=== PATIENT | male | born 1945 | race Caucasian/White ===

== ENCOUNTER 2020-08-05 17:58 | Outpatient (REF) | payer MEDICARE, SELFPAY | END 2020-08-05 17:59 | disposition home or self-care (01) | LOC: HO.LNP 17:58 | PROVIDERS: Visit Provider Physician Assistant | DX: M54.5 Low back pain (principal) | CPT/HCPCS: 87086 ==

== ENCOUNTER 2021-11-09 09:04 | Outpatient (REF) | payer MEDICARE, SELFPAY ==
[2021-11-09 11:29] LABS: MANUAL DIFF FLAG NO
[2021-11-09 11:33] LABS: Hematocrit 41.1 % (42.0-52.0); Hemoglobin 13.9 g/dl (14.0-18.0); Red Blood Count 4.37 X10*6/uL (4.60-5.80); White Blood Count 7.8 X10*3/uL (4.8-10.8)
[2021-11-09 11:34] LABS: Basophils Percent Auto 0.3 % (0-2); Eosinophils Absolute Auto 0.4 X10*3/uL (0.0-0.4); Eosinophils Percent Auto 5.1 % (0-4); Imm Gran Abs Auto 0.02 X10*3/uL (0.00-0.03); Imm Gran Pct Auto 0.3 % (0.0-0.4); Lymphocytes Absolute Auto 3.5 X10*3/uL (1.2-4.9); Lymphocytes Percent Auto 44.8 % (20-40); Mean Corpuscular HGB Conc 33.8 g/dl (31.0-36.0); Mean Corpuscular Hemoglobin 31.8 pg (27.0-33.0); Mean Corpuscular Volume 94.1 fL (80.0-98.0); Mean Platelet Volume 10.3 fL (9.4-12.4); Monocytes Absolute Auto 0.4 X10*3/uL (0.1-1.2); Monocytes Percent Auto 5.1 % (2-11); Neutrophils Absolute Auto 3.5 x10*3/uL (2.0-8.3); Neutrophils Percent Auto 44.4 % (45-73); Platelet Count 194 X10*3/uL (160-400); Red Cell Distribution Width 12.7 % (11.0-16.0)
[2021-11-09 11:50] LABS: Alanine Aminotransferase 19 U/L (0-40); Albumin Level 4.1 g/dL (3.5-5.0); Alkaline Phosphatase 81 U/L (39-117); Anion Gap 11 (12-20); Aspartate Amino Transferase 24 U/L (5-37); Bilirubin Total 1.4 mg/dL (0.0-1.0); Blood Urea Nitrogen 23 mg/dL (9-16); Calcium 9.4 mg/dL (8.4-10.2); Carbon Dioxide 28 mmol/L (22-29); Chloride 105 mmol/L (96-108); Cholesterol 226 mg/dL; Estimated Glomerular Filt Rate 55; Glucose Fasting 93 mg/dL (60-99); HDL Cholesterol 51 mg/dL; LDL Cholesterol Calculated 159 mg/dl; Potassium 4.4 mmol/L (3.3-5.1); Sodium 140 mmol/L (135-145); Total Protein 7.5 g/dL (6.5-8.0); Triglycerides 82 mg/dL
[2021-11-09 12:13] LABS: Thyroid Stimulating Hormone 1.55 uIU/mL (0.32-4.0); Vitamin D 25-OH Total 23.4 ng/mL (>30)
[2021-11-09 12:30] LABS: Vitamin B12 271 pg/mL (200-900)
== END 2021-11-09 09:05 | disposition home or self-care (01) ==
LOC: HO.MANLDS 09:04
PROVIDERS: PCP Internal Medicine; Visit Provider Internal Medicine
DX: Z00.01 Encounter for general adult medical examination with abnormal findings (principal)
CPT/HCPCS: 36415; 80053; 80061; 82306; 82607; 84443; 85025

== ENCOUNTER 2022-11-22 08:38 | Outpatient (REF) | payer MEDICARE, SELFPAY ==
[2022-11-22 11:16] LABS: MANUAL DIFF FLAG NO
[2022-11-22 11:20] LABS: Basophils Percent Auto 0.3 % (0-2); Eosinophils Absolute Auto 0.4 X10*3/uL (0.0-0.4); Eosinophils Percent Auto 4.9 % (0-4); Hematocrit 42.6 % (42.0-52.0); Hemoglobin 14.4 g/dl (14.0-18.0); Imm Gran Abs Auto 0.02 X10*3/uL (0.00-0.03); Imm Gran Pct Auto 0.3 % (0.0-0.4); Lymphocytes Absolute Auto 3.3 X10*3/uL (1.2-4.9); Lymphocytes Percent Auto 42.9 % (20-40); Mean Corpuscular HGB Conc 33.8 g/dl (31.0-36.0); Mean Corpuscular Hemoglobin 31.8 pg (27.0-33.0); Mean Platelet Volume 10.6 fL (9.4-12.4); Monocytes Absolute Auto 0.5 X10*3/uL (0.1-1.2); Monocytes Percent Auto 6.7 % (2-11); Neutrophils Absolute Auto 3.4 x10*3/uL (2.0-8.3); Neutrophils Percent Auto 44.9 % (45-73); Platelet Count 201 X10*3/uL (160-400); Red Blood Count 4.53 X10*6/uL (4.60-5.80); Red Cell Distribution Width 12.6 % (11.0-16.0); White Blood Count 7.6 X10*3/uL (4.8-10.8)
[2022-11-22 11:58] LABS: Alanine Aminotransferase 12 U/L (0-40); Alkaline Phosphatase 87 U/L (39-117); Anion Gap 12 (12-20); Aspartate Amino Transferase 20 U/L (5-37); Bilirubin Total 1.1 mg/dL (0.0-1.0); Blood Urea Nitrogen 21 mg/dL (9-16); Calcium 9.4 mg/dL (8.4-10.2); Carbon Dioxide 30 mmol/L (22-29); Chloride 103 mmol/L (96-108); Cholesterol 225 mg/dL; Estimated Glomerular Filt Rate 54; Glucose Fasting 103 mg/dL (60-99); HDL Cholesterol 49 mg/dL; LDL Cholesterol Calculated 160 mg/dl; Potassium 4.7 mmol/L (3.3-5.1); Sodium 140 mmol/L (135-145); Total Protein 7.2 g/dL (6.5-8.0); Triglycerides 84 mg/dL
[2022-11-22 12:30] LABS: Thyroid Stimulating Hormone 2.06 uIU/mL (0.32-4.0); Vitamin B12 353 pg/mL (200-900); Vitamin D 25-OH Total 28.4 ng/mL (>30)
[2022-11-22 15:43] LABS: Prostate Specific Antigen < 0.10 ng/mL (<0.05-4.0)
== END 2022-11-22 08:39 | disposition home or self-care (01) ==
LOC: HO.MANLDS 08:38
PROVIDERS: Visit Provider Internal Medicine
DX: Z00.00 Encounter for general adult medical examination without abnormal findings (principal); Z12.5 Encounter for screening for malignant neoplasm of prostate; G93.32 Myalgic encephalomyelitis/chronic fatigue syndrome; E78.00 Pure hypercholesterolemia, unspecified
CPT/HCPCS: 36415; 80053; 80061; 82306; 82607; 84153; 84443; 85025

== ENCOUNTER 2023-11-29 08:50 | Outpatient (REF) | payer MEDICARE, SELFPAY ==
[2023-11-29 13:31] LABS: MANUAL DIFF FLAG NO
[2023-11-29 14:06] LABS: Basophils Percent Auto 0.3 % (0-2); Eosinophils Absolute Auto 0.4 X10*3/uL (0.0-0.4); Eosinophils Percent Auto 5.2 % (0-4); Hematocrit 42.3 % (42.0-52.0); Hemoglobin 14.4 g/dl (14.0-18.0); Imm Gran Abs Auto 0.02 X10*3/uL (0.00-0.03); Imm Gran Pct Auto 0.3 % (0.0-0.4); Lymphocytes Absolute Auto 3.1 X10*3/uL (1.2-4.9); Lymphocytes Percent Auto 41.4 % (20-40); Mean Corpuscular Hemoglobin 32.1 pg (27.0-33.0); Mean Corpuscular Volume 94.4 fL (80.0-98.0); Mean Platelet Volume 9.8 fL (9.4-12.4); Monocytes Absolute Auto 0.5 X10*3/uL (0.1-1.2); Monocytes Percent Auto 6.7 % (2-11); Neutrophils Absolute Auto 3.5 x10*3/uL (2.0-8.3); Neutrophils Percent Auto 46.1 % (45-73); Platelet Count 234 X10*3/uL (160-400); Red Blood Count 4.48 X10*6/uL (4.60-5.80); Red Cell Distribution Width 12.6 % (11.0-16.0); White Blood Count 7.5 X10*3/uL (4.8-10.8)
[2023-11-29 14:12] LABS: Alanine Aminotransferase 17 U/L (0-40); Alkaline Phosphatase 97 U/L (39-117); Anion Gap 12 (12-20); Aspartate Amino Transferase 30 U/L (5-37); Bilirubin Total 0.6 mg/dL (0.0-1.0); Blood Urea Nitrogen 27 mg/dL (9-16); Calcium 9.9 mg/dL (8.4-10.2); Carbon Dioxide 30 mmol/L (22-29); Chloride 105 mmol/L (96-108); Estimated Glomerular Filt Rate 58; Glucose Random 102 mg/dL (60-115); Potassium 4.9 mmol/L (3.3-5.1); Sodium 142 mmol/L (135-145); Total Protein 7.7 g/dL (6.5-8.0); Uric Acid 7.8 mg/dL (3.4-7.0)
[2023-11-29 14:27] LABS: Vitamin D 25-OH Total 38.1 ng/mL (>30)
[2023-11-29 14:32] LABS: Vitamin B12 340 pg/mL (200-900)
== END 2023-11-29 08:51 | disposition home or self-care (01) ==
LOC: HO.MANLDS 08:50
PROVIDERS: Visit Provider Internal Medicine
DX: Z00.00 Encounter for general adult medical examination without abnormal findings (principal); M10.9 Gout, unspecified
CPT/HCPCS: 36415; 80053; 82306; 82607; 84550; 85025

== ENCOUNTER 2025-03-20 08:59 | Outpatient (REF) | payer MEDICARE, SELFPAY ==
--- OUTSIDE RECORDS SUMMARY | 2025-03-20 09:12 | XMS_ITS | Data Portability ---
Author Organization [facility], Telehealth Patient Home Address [address] [place] [address] Assessment Encounter Date Assessment Date Assessment LastModified by Organization Details LastModified Time 03/19/2025 03/19/2025 Patient presente d to office today for their Medicare Annual Wellness Visit. Education was provided on healthy nutrition, including a diet rich in fruits and vegetables, minimizing simple carbohydrates, salt, and saturated fats. Encouraged regular cardiovascular exercise such as walking at least 30 minutes daily, 5 times per week. Emphasized preventive health measures and educated pt on fall prevention and community-based lifestyle interventions to help reduce health risks and promote healthy living. Not available 03/13/2025 15:45:51 Plan of Treatment Reminders Order Date Submit Date Provider Last Modified By Organization Details Last Modified Time Details Appointments MEDICARE ANNUAL WELLNESS 2025 09:30A M DR MOE Not available Not available Not available Lab uric acid, serum or plasma 2024 025 [facility], [address] [place] [address], [id number], 03/19/2025 10:39:25 PSA, serum or plasma 2024 025 [facility], [address] [place] [address], [id number], 03/19/2025 10:39:25 CBC 2024 025 [facility], [address] [place] [address], [id number], 03/19/2025 10:39:25 lipid panel, blood 2024 025 [facility], [address] [place] [address], [id number], 03/19/2025 10:39:25 CMP, serum or plasma 2024 025 [facility], [address] [place] [address], [id number], 03/19/2025 10:39:25 uric acid, serum or plasma 2023 024 [facility], [address] [place] [address], [id number], 12/02/2023 14:27:37 CMP, serum or plasma 2023 024 [facility], [address] [place] [address], [id number], 2023 11:14:55 CBC w/ auto diff 2023 024 [facility], [address] [place] [address], [id number], 11/28/2023 13:04:52 vitamin D, 25-hydrox y, total, serum 2023 024 [facility], [address] [place] [address], [id number], 11/28/2023 13:04:52 vitamin B12, serum 2023 024 [facility], [address] [place] [address], [id number], 11/28/2023 13:04:52 lyme disease igg+igm, serum, reflex western blot 2022 023 [facility], [address] [place] [address], [id number], 12/15/2022 11:10:37 CMP, serum or plasma 2022 023 [facility], [address] [place] [address], [id number], 11/23/2022 11:13:38 CBC w/ auto diff 2022 023 [facility], [address] [place] [address], [id number], 11/09/2022 12:10:37 PSA, serum or plasma 2022 023 [facility], [address] [place] [address], [id number], 11/09/2022 12:10:37 vitamin D, 25-hydrox y, total, serum 2022 023 [facility], [address] [place] [address], [id number], 11/09/2022 12:10:37 lipid panel, blood 2022 023 [facility], [address] [place] [address], [id number], 11/09/2022 12:10:37 vitamin B12, serum 2022 023 [facility], [address] [place] [address], [id number], 11/09/2022 12:10:37 TSH, serum or plasma 2022 023 [facility], [address] [place] [address], [id number], 11/09/2022 12:10:37 Referral None recorded. Procedures None recorded. Surgeries None recorded. Imaging CT, heart, w/o contrast, w/ coronary calcium score 2024 025 [email or web address] [facility], [address] [place], [address], 03/19/2025 11:11:31 Medication Orders [facility]il 20 mg tablet 2024 0[facility] [address] [place], [address], 03/19/2025 10:40:39 colchicin e 0.6 mg tablet 2023 024 [email or web address] [id number], [address] [place], [address], 03/19/2025 10:23:30 doxycycli ne hyclate 100 mg tablet 2022 023 [email or web address] [id number], [address] [place], [address], 01/17/2023 11:49:19 Patient TargetsNo targets recorded. Patient Instructions Encounter Date Encounter Id Patient Instructions Last Modified By Organization Details Last Modified Time 03/19/2025 [id number] gout: care instructions [email or web address] Not available 03/19/2025 10:36:12 Discussed and explained advance directives such as standard forms to the . Face to face discussion lasted for a duration of ___ minutes. Not available 03/13/2025 15:45:51 Reason for Referral None Reported. Results Created Date Observation Date Name Description Value Unit Range Abnormal Flag Note LastModifiedBy Organization Detail LastModifiedTime Result Notes None recorded. Problems Name Problem SNOMED Code Status Onset Date Resolution Date Notes Provider Name and Address Organization Details Recorded Time Left anterior fascicular block 12856808 Active 2018 Deborah rooney [facility] 9 16:38:16 Carcinoma of prostate 542377852 Active 2018 Deborah rooney [facility] 9 16:38:25 Hypertensi ve disorder 24154913 Active 2022 JEANNETTE VANEGAS [address] [place] [address], [address], [facility] 3 11:47:30 Gout 13587321 Active 2023 Clint Moe DO [address] [place], [address], [facility] 4 12:40:25 Problem Notes None recorded. Procedures Surgical History Date Name Laterality Status Provider Name and Address Organization Details Recorded Time 0 Suture/Stap le removal completed JEANNETTE VANEGAS [address] [place], [address], [facility] 04/30/2020 11:23:23 Imaging Results None recorded. Procedure Notes None recorded. Medical Equipment None Reported. Allergies No known drug allergies Medications Name Sig Start Date Stop Date Status Note LastModified by Organization Details LastModified Time cephalexin 500 mg capsule TAKE 1 CAPSULE BY MOUTH 4 TIMES A DAY FOR 5 DAYS 08/05 completed Not Available Not Available Not Available diclofenac sodium 75 mg tablet,amado yed release TAKE 1 TABLET BY MOUTH TWICE A DAY WITH MEALS 11/03 completed Not Available Not Available Not Available colchicine 0.6 mg tablet TAKE 2 TABS AT ONCE AND THEN 1 TAB 3 HOURS LATER 03/19 completed Not Available Not Available Not Available doxycycline hyclate 100 mg tablet TAKE 1 TABLET TWICE A DAY BY MOUTH FOR 1 DAY. 01/17 completed Not Available Not Available Not Available tadalafil 20 mg tablet Take 1 tablet as needed by oral route as needed for 90 days. 2024 active Not Available Not Available Not Avai lable Boostrix Tdap 2.5 Lf unit-8 mcg-5 Lf/0.5 mL intramuscul ar syringe TO BE ADMINISTE RED BY PHARMACIS T FOR IMMUNIZAT ION 08/05 completed Not Available Not Available Not Available Tart Almeida 03/19 completed Not Available Not Available Not Available Baby Vitamin D3 10 mcg/drop (400 unit/drop) oral drops Take 30 microgram s every day by oral route. 03/19 completed Not Available Not Available Not Available Flowflex COVID-19 Antigen Home Test kit USE DIRECTED 11/09 completed Not Available Not Available Not Available Vitals Date Recorded Body height Body mass index (BMI) Body weight Heart rate Oxygen saturation Oxygen saturation in Arterial blood by Pulse oximetry Systolic And Diastolic Provider Name and Address Organization Details Last Updated DateTime 3 176.53 cm 26.6 kg/m2 07824.4 g 91 /min 98 % 98 % 146/88 mm[Hg] Clint Moe DO [address] [place], [address] 3 11:56:31 Date Recorded Body height Body mass index (BMI) Body weight Heart rate Oxygen saturation Oxygen saturation in Arterial blood by Pulse oximetry Systolic And Diastolic Provider Name and Address Organization Details Last Updated DateTime 4 176.53 cm 27.8 kg/m2 76498.8 6 g 88 /min 97 % 97 % 146/88 mm[Hg] Jo-Ann Main [facility] 4 12:05:15 Date Recorded Body height Body mass index (BMI) Body weight Heart rate Oxygen saturation Oxygen saturation in Arterial blood by Pulse oximetry Systolic And Diastolic Provider Name and Address Organization Details Last Updated DateTime 3 176.53 cm 26.9 kg/m2 58124.5 9 g 81 /min 97 % 97 % 150/78 mm[Hg] Emmie Avilez [facility] 3 10:49:08 Date Recorded Body height Heart rate Oxygen saturation Oxygen saturation in Arterial blood by Pulse oximetry Body mass index (BMI) Body weight Systolic And Diastolic Provider Name and Address Organization Details Last Updated DateTime 3 176.53 cm 63 /min 100 % 100 % 26.6 kg/m2 74027.0 4 g 160/100 mm[Hg] JEANNETTE VANEGAS [address] [place], [address] 3 11:50:45 Date Recorded Body height Body mass index (BMI) Body weight Heart rate Oxygen saturation Oxygen saturation in Arterial blood by Pulse oximetry Systolic And Diastolic Provider Name and Address Organization Details Last Updated DateTime 5 175.26 cm 28.4 kg/m2 60437.7 4 g 85 /min 98 % 98 % 128/68 mm[Hg] Emmie Avilez [facility] 5 10:04:05 Social History Question Answer Notes LastModified by Organizat ion Details LastModified Time Tobacco Smoking Status Never Smoker Not Available [employer] 07/08/2020 03:36:23 What Was The Date Of Your Most Recent Tobacco Screening? 03/19/2025 [email or web address] Information not available 03/19/2025 Sex: Unknown Functional Status None recorded. Mental Status None recorded. Family History Nothing Reported. Medical History No medical history recorded. Immunizations Vaccine Type Date Status Note Provider Nam e and Address Organization Details Recorded Time COVID-19, mRNA, LNP-S, PF, 30 mcg/0.3 mL dose 12/06/2020 completed Deborah rooney [facility] 11/03/2021 14:46:48 COVID-19, mRNA, LNP-S, PF, 30 mcg/0.3 mL dose 06/23/2021 batsheva rooney [facility] 11/03/2021 14:46:54 COVID-19, mRNA, LNP-S, PF, 30 mcg/0.3 mL dose 11/15/2020 batsheva rooney [facility] 11/03/2021 14:47:19 Past Encounters Encounter ID Performer Location Encounter Start Date Encounter Closed Date Diagnosis/Indication Diagnosis SNOMED-CT Code Diagnosis ICD10 Code Diagnosis Note [id number] Clint Moe [facility] [address] [facility],[place] [address] 09/12/2018 10:54:37 09/12/2018 16:47:37 Adult health examination 155764254 Z00.00 has done exxception ally well is going to embark on a new vigorous exercise program will need an ETT prior Active or passive immunization 233335556 Z23 recc shingles, tdap pneumo up to date Ischemic h eart disease screening 341189353 Z13.6 patient embarking on new vigorous exercise program [id number] Clint Moe [facility] [address] [facility],[place] [address] 09/18/2019 10:48:22 09/18/2019 11:17:06 Adult health examination 655835862 Z00.00 has done exceptiona lly well is going to embark on a new vigorous exercise program will need an ETT prior Active or passive immunization 201206956 Z23 recc shingles, tdap pneumo up to date Hepatitis C screening 41 2284786 Z11.59 Increased blood pressure 73103766 R03.0 will be checking at home think this may be an outlayer and not signif reading Primary er ectile dysfunction 978970569 N52.9 [id number] Clint Moe [facility] Medicine [address] [facility] [address] 04/30/2020 11:06:00 04/30/2020 12:34:00 Removal of suture 79344226 Z48.02 tolerated well patient looks good, wounds are well healing [id number] Clint Moe [facility] Medicine [address] [facility],[place] [address] 08/05/2020 15:37:50 08/05/2020 16:22:35 Low back pain 911279938 M54.5 no low back pain, more hip pain Pain of ri ght hip joint 0106664745 30290 M25.551 will fu after XR [id number] Clint Moe [facility] Medicine [address] [facility],[place] [address] 10/27/2020 14:50:56 10/27/2020 15:37:41 Active or passive immunization 126333922 Z23 recc shingles, tdap pneumo up to date Adult heal th examination 348589172 Z00.00 has done exceptiona lly well is going to embark on a new vigorous exercise program will need an ETT prior [id number] Clint Moe [facility] Medicine [address] [facility],[place] [address] 11/03/2021 11:19:34 11/04/2021 08:21:12 Active or passive immunization 552821630 Z23 recc shingles, tdap pneumo up to date Adult heal th examination 950398680 Z00.01 doing very good and is not having any major issues Primary er ectile dysfunction 781057418 N52.9 [id number] Clint Moe [facility] Medicine [address] [facility] [address] 11/09/2022 11:50:58 11/09/2022 16:29:23 Active or passive immunization 767067634 Z23 recc shingles, tdap pneumo up to date Adult heal th examination 301818874 Z00.00 doing very good and is not having any major issues Advance care planning 71 9398843 Z71.89 utd [id number] Clint Moe [facility] Medicine [address] [facility],[place] [address] 12/15/2022 10:40:46 12/15/2022 14:04:14 Infection of tick bite 978529823 W57.XXXA will set up with doxycyclin e Carcinoma of prostate 25 5646636 C61 stable no changesmon itoring symptoms [id number] Clint Moe [facility] Medicine [address] [facility],[place] [employer] [place] [address] 01/17/2023 11:43:37 01/17/2023 12:33:40 Hypertensive disorder 64701527 I10 lower with rechecksti ll declines any medical interventi on with his BP at this time Carcinoma of prostate 25 0606516 C61 stable no changesmon itoring symptoms [id number] Clint Moe [facility] Medicine [address] [facility] [address] 11/28/2023 11:53:44 11/28/2023 13:43:47 Hypertensive disorder 24836203 I10 stable Adult heal th examination 409644272 Z00.00 doing very good and is not having any major issues Gout 77171374 M10.9 told to use colchicine instead of tart almeida [id number] Clint Moe [facility] Medicine [address] [facility] [address] 03/19/2025 09:53:46 03/19/2025 11:11:31 Screening for cardiovascular system disease 368200327 Z13.6 doing very good and is not having any major issues Screening for malignant neoplasm of colon 434195793 Z12.11 Hypertensive disorder 38 148726 I10 stable Gout 50914045 M10.9 told to use colchicine instead of tart almeida Carcinoma of prostate 25 0659395 C61 Well adult 973134665 Z00 .00 doing very good and is not having any major issues Primary er ectile dysfunction 001240456 N52.9 Health Concerns Section Related Observation LastModified by Organization Kathryn ls LastModified Time None Recorded Concern Status LastModified by Organization Details LastModified Time None Recorded Advance Directives Directive None Recorded Payers Insurance Date Sequence Insurance Name Policy Number Policy Busch Covered Member ID Busch Member ID Guarantor Name 03/19/2025 1 [facility]: MEDICARE PPO BLUE (MEDICARE REPLACEMENT PPO) [id number] Fidencio Obara [id number] Fidencio Obara Notes Date Note Type Note Provider Name and Address Organization Details Recorded Time 3 text/html Annual WellnessReported bypatient.Diet and Nutrition:healthy diet Fracture Risk:no history of fractures; no recent explained fracture; no sudden unexplained fractures; no previous musculoskeletal injuries Physical Activity:exercises on a regular basis; recent increase in physical activity; good physical condition Additional Lifestyle Factors:no tobacco use; no alcohol intake; stopped drinking alcohol Depression Risk:never feels sad, empty, or tearful; no loss of interest in activities; no significant changes in weight; no sleep disturbances or insomnia; no agitation; no loss of energy; no feelings of worthlessness or guilt; no thoughts of suicide; no history of depression; no history of mood disorders Hearing:no loss of hearing Vision:no vision problemsNotes:doing well offers no new complaintswondering about supplements for his age talked about matt Moe, DO [address] [facility], [place], [address], [facility] 11/09/2022 12:09:41 3 text/html c/o tick bite the patient reports finding a tick on him in the showerit was fully engorgedthe patient has been hiking and walking outsidedidn't notice it previouslywas on a hike yesterday in the [place] there at that time was on the left side upper torso under the axilla regionarea is red and swollenno bull's eye rash agreed to start doxy one doserecck lyme disease panel in 4 weeks or so and check on his symptoms if anything has changed no issues today with urination or dysuriastable; will monitor JEANNETTE VANEGAS [address] [place], [address], [facility] 12/15/2022 11:12:03 3 text/html BP f/u doing great; the patient reports that HTN: elevated in the office today; more so than usualrecheck is 142/80 R arm after sitting for 15 minutes carcinoma of prostate: stable the patient reports that he used to take his BP at homethe patient declines BP medication or intervention if BP continues to be elevateddid discuss dizziness with ptmild in the morning, could be BP, could be vertigo related headaches/seasonal related still hiking and boatingfeels really goodno other symptoms or concerns will monitor patientwill have him f/u JEANNETTE VANEGAS [address] [place], [address], [facility] 01/17/2023 12:32:07 4 text/html note had what appeared to be 2 gout attacks to left great toe Clint Moe DO [address] [place], [address], [facility] 11/28/2023 12:45:33 5 text/html Medicare Annual Wellness VisitReported bypatient.Diet and Nutrition:healthy diet Fracture Risk:no history of fractures; no recent explained fracture; no sudden unexplained fractures; no previous musculoskeletal injuries Physical Activity:exercises on a regular basis; recent increase in physical activity; good physical condition Depression Risk:never feels sad, empty, or tearful; no loss of interest in activities; no significant changes in weight; no sleep disturbances or insomnia; no agitation; no loss of energy; no feelings of worthlessness or guilt; no thoughts of suicide; no history of depression; no history of mood disorders Orientation:no disorientation to time; no disorientation to date; no disorientation to place Concentration and Memory:no decreased concentrating ability; no memory lapses or loss; does not forget words Speech/Motor difficulties:no speech difficulties; no difficulty expressing formulated concepts; no difficulty with fine manipulative tasks; no difficulty writing/copying; no slowed reaction time; does not knock things over when trying to pick them up Hearing:no loss of hearing Vision:no vision problems Activities of Daily Living:able to bathe with limited or no assistance; able to contol urination and bowels; able to dress with limited or no assistance; able to feed self with limited or no assistance; able to get out of chair or bed with limited or no assistance; able to groom with limited or no assistance; able to toilet with limited or no assistance Instrumental Activities of Daily Living:able to do house work with limited or no assistance; able to grocery shop with limited or no assistance; able to manage medications with limited or no assistance; able to manage money with limited or no assistance; able to prepare meals with limited or no assistance; able to use the phone with limited or no assistance Falls Risk Assessment:no frequent falls while walking; no fall in the past year; no fall since last visit; no dizziness/vertigo Home Safety:no unsafe ernesto hazzards; no unsafe stairs; no unsafe gas appliances; working smoke/CO detectors; wears protective head gear for biking/high velocity; use of seatbelts; practicing 'safer sex'; no vision or hearing loss while driving; no fire arms; has hand bars in the bathroom/shower; good lighting in the home Patient is a __79 year old male with a history of hypertension. Patient had been stable on medication until recently. Patient returns today for further evaluation. Patient denies lightheadedness or dizziness. Clint Moe, DO [address] [facility], [place], [address], [facility] 03/19/2025 10:40:44
--- OUTSIDE RECORDS SUMMARY | 2025-03-20 09:12 | XMS_ITS | Patient Health Record ---
Author Organization [facility] Address [address] [place] [address] Care Team Providers Care Booth Manager Name Role Phone Pascual Doe Unavailable [phone] Reason For Referral No Information Plan Of Treatment No Information
[2025-03-20 13:46] LABS: MANUAL DIFF FLAG NO
[2025-03-20 13:56] LABS: Hematocrit 40.7 % (42.0-52.0); Hemoglobin 14.1 g/dl (14.0-18.0); Imm Gran Abs Auto 0.02 X10*3/uL (0.00-0.03); Imm Gran Pct Auto 0.3 % (0.0-0.4); Lymphocytes Absolute Auto 3.0 X10*3/uL (1.2-4.9); Mean Corpuscular HGB Conc 34.6 g/dl (31.0-36.0); Mean Corpuscular Hemoglobin 32.3 pg (27.0-33.0); Mean Corpuscular Volume 93.1 fL (80.0-98.0); NRBC Abs Auto 0.000 X10*3/uL (0.0-0.012); NRBC Pct Auto 0.0 /100WBC (0.0-0.2); Platelet Count 176 X10*3/uL (160-400); Red Blood Count 4.37 X10*6/uL (4.60-5.80); White Blood Count 8.0 X10*3/uL (4.8-10.8)
[2025-03-20 14:28] LABS: Alanine Aminotransferase 14 U/L (0-40); Albumin Level 4.1 g/dL (3.5-5.0); Alkaline Phosphatase 87 U/L (39-117); Anion Gap 9 (12-20); Aspartate Amino Transferase 25 U/L (5-37); Blood Urea Nitrogen 18 mg/dL (9-16); Calcium 9.1 mg/dL (8.4-10.2); Carbon Dioxide 26 mmol/L (22-29); Chloride 109 mmol/L (96-108); Cholesterol 197 mg/dL (<200); Estimated Glomerular Filt Rate > 60; HDL Cholesterol 43 mg/dL (>40); Potassium 4.1 mmol/L (3.3-5.1); Sodium 140 mmol/L (135-145); Total Protein 7.0 g/dL (6.5-8.0); Triglycerides 98 mg/dL (<150); Uric Acid 7.6 mg/dL (3.4-7.0)
[2025-03-21 07:05] LABS: Prostate Specific Antigen < 0.10 ng/mL (<0.05-4.0)
== END 2025-03-20 09:00 | disposition home or self-care (01) ==
LOC: HO.MANLDS 08:59
PROVIDERS: Visit Provider Internal Medicine
DX: Z13.6 Encounter for screening for cardiovascular disorders (principal); Z12.5 Encounter for screening for malignant neoplasm of prostate; C61 Malignant neoplasm of prostate; I10 Essential (primary) hypertension
CPT/HCPCS: 36415; 80053; 80061; 84153; 84550; 85025